=== PATIENT | female | born 1960 | race Caucasian/White ===

== ENCOUNTER 2018-05-16 17:55 | Emergency (ER) | payer MEDICAID ==
[~2018-05-16] VITALS: Ht 160 cm; Wt 90.7 kg
[2018-05-16 18:18] VITALS: BP_SYST 136
--- NOTE | 2018-05-16 19:00 | NUR ---
Patient to [facility] for evaluation. Side rails up. Report given to MI Campbell
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
[2018-05-16] MEDS ORDERED: CYCLOBENZAPRINE HCL 10 MG TABLET (FLEXERIL) PO ONE (20:00)
[2018-05-16] MEDS ORDERED: KETOROLAC TROMETHAMINE 30 MG VIAL IM ONE (20:00)
--- NOTE | 2018-05-16 20:01 | NUR ---
GURMEET Cano at bedside examining patient.
[2018-05-16 21:20] VITALS: BP_SYST 126
--- NOTE | 2018-05-16 21:20 | NUR ---
Patient given written and verbal discharge instructions and verbalizes understanding. ER MD discussed with patient the results and treatment provided. Patient in stable condition. ID arm band removed. Rx of ibuprofen and flexeril given. Patient educated on pain management and to follow up with PMD in 2-3 days. Pain Scale 0/10 Opportunity for questions provided and answered. Medication side effect fact sheet provided.
== END 2018-05-16 21:20 | disposition home or self-care (01) ==
LOC: SED 17:55
DX: S16.1XXA Strain of muscle, fascia and tendon at neck level, initial encounter (principal); S39.012A Strain of muscle, fascia and tendon of lower back, initial encounter; R51 Headache; V89.2XXA Person injured in unspecified motor-vehicle accident, traffic, initial encounter; Y93.89 Activity, other specified; Y92.89 Other specified places as the place of occurrence of the external cause; Y99.8 Other external cause status
CPT/HCPCS: 70450; 72125; 96372; 99284; J1885